=== PATIENT | female | born 1995 | race Caucasian/White ===

== ENCOUNTER 2022-10-15 11:36 | Emergency (ER) | payer OTHER ==
[2022-10-15 11:41] VITALS: BP 144/93; PULSE 92; RESP 18; TEMP 97; BMI 30.7
[2022-10-15 13:55] LABS: BASO % 0.4 % (0-2.0); EOS % 0.4 % (0-4.5); HEMATOCRIT 41.6 % (32.4-45.2); HEMOGLOBIN 14.2 GM/dL (10.7-15.3); LYMPH % 32.6 % (8-40); MCH 29.2 pg (25.7-33.7); MCHC 34.2 g/dl (32.0-36.0); MEAN CELL VOLUME 85.5 fl (80-96); MEAN PLT VOLUME 9.4 fl (7.5-11.1); MONO % 6.2 % (3.8-10.2); NEUT % 60.4 % (42.8-82.8); PLATELET COUNT 236 10^3/uL (134-434); RBC 4.87 M/mm3 (3.60-5.2); RDW 14.4 % (11.6-15.6); WHITE BLOOD COUNT 8.7 K/mm3 (4.0-10.0)
[2022-10-15 14:02] LABS: EPI CELLS 36 /uL (0-25.1); HYALINE CASTS 0 /uL (0-3.1); URINE APPEARANCE CLEAR; URINE BACTERIA 517 /uL (0-1359); URINE BILIRUBIN NEGATIVE (NEGATIVE); URINE COLOR YELLOW; URINE GLUCOSE (UA) NEGATIVE (NEGATIVE); URINE KETONE NEGATIVE (NEGATIVE); URINE LEUK ESTERASE NEGATIVE (NEGATIVE); URINE NITRITE NEGATIVE (NEGATIVE); URINE PROTEIN NEGATIVE (NEGATIVE); URINE RBC 50 /uL (0-23.9); URINE UROBILINOGEN 0.2 mg/dL (0.2-1.0); URINE WBC 37 /uL (0-25.8)
[2022-10-15 14:15] LABS: POTASSIUM 4.2 mmol/L (3.5-5.1)
[2022-10-15 14:17] LABS: BLOOD UREA NITROGEN 10.7 mg/dL (7-18); CALCIUM 10.1 mg/dL (8.5-10.1)
[2022-10-15 14:18] LABS: ALBUMIN 4.4 g/dl (3.4-5.0); MAGNESIUM 2.3 mg/dL (1.8-2.4)
[2022-10-15 14:21] LABS: CREATININE 0.7 mg/dL (0.55-1.3)
[2022-10-15 14:22] LABS: BILIRUBIN,TOTAL 0.4 mg/dL (0.2-1); TOT PROT 8.7 g/dl (6.4-8.2)
== END 2022-10-15 14:59 | disposition home or self-care (01) ==
LOC: JER 11:36
DX: R42 Dizziness and giddiness (principal); H53.8 Other visual disturbances; R07.9 Chest pain, unspecified; R00.2 Palpitations; R06.02 Shortness of breath; Z20.822 Contact with and (suspected) exposure to COVID-19
CPT/HCPCS: 0241U-QW; 36415; 80053; 81003; 82962; 83735; 84439; 84443; 85025; 87086; 87186; 93005; 93010; 99284-25

== ENCOUNTER 2023-02-04 13:06 | Emergency (ER) | payer OTHER ==
[2023-02-04 13:37] VITALS: BP 135/95; PULSE 88; RESP 16; TEMP 98.7; BMI 32.5
[2023-02-04] MEDS ORDERED: ACETAMINOPHEN 500 MG TABLET (FP) PO ONE (14:22)
[2023-02-04] MEDS ORDERED: BACITRACIN ZINC 15 GM TUBE TOPICAL OINTMENT TP ONE (14:22)
[2023-02-04] MEDS ORDERED: ACETAMINOPHEN 500 MG TABLET (FP) ONE (14:30)
== END 2023-02-04 15:09 | disposition home or self-care (01) ==
LOC: JERFT 13:06
DX: T22.132A Burn of first degree of left upper arm, initial encounter (principal); X10.2XXA Contact with fats and cooking oils, initial encounter
CPT/HCPCS: 99282-25

== ENCOUNTER 2023-06-16 13:16 | Emergency (ER) | payer OTHER ==
[2023-06-16 14:02] VITALS: BP 140/86; PULSE 101; RESP 17; TEMP 97.8; BMI 31.5
[2023-06-16] MEDS ORDERED: BACITRACIN ZINC 15 GM TUBE TOPICAL OINTMENT TP ONE (14:42)
[2023-06-16] MEDS ORDERED: DIPHTH,PERTUSS(ACELL),TET 0.5 ML DISP.SYRIN IM ONE ×3 (14:42→14:51)
[2023-06-16] MEDS ORDERED: BACITRACIN ZINC 15 GM TUBE TOPICAL OINTMENT ONE (14:50)
== END 2023-06-16 15:28 | disposition home or self-care (01) ==
LOC: JERFT 13:16 → JER 13:16 → JERFT 15:28
PROC: 3E0234Z Introduction of Serum, Toxoid and Vaccine into Muscle, Percutaneous Approach (ICD-10-PCS; principal; 2023-06-16)
DX: S61.213A Laceration without foreign body of left middle finger without damage to nail, initial encounter (principal); W26.0XXA Contact with knife, initial encounter
CPT/HCPCS: 90715; 99283-25

== ENCOUNTER 2023-08-18 17:11 | Emergency (ER) | payer OTHER ==
[2023-08-18 17:17] VITALS: RESP 18; TEMP 98; BMI 31.3
[2023-08-18] MEDS ORDERED: ACETAMINOPHEN 325 MG TABLET (FP) ONE (18:52)
[2023-08-18] MEDS ORDERED: LIDOCAINE 4% PATCH TP ONE (18:53)
[2023-08-18 18:58] LABS: BASO % 0.6 % (0-2.0); EOS % 0.8 % (0-4.5); HEMATOCRIT 40.2 % (32.4-45.2); HEMOGLOBIN 13.3 GM/dL (10.7-15.3); LYMPH % 30.3 % (8-40); MCH 28.9 pg (25.7-33.7); MEAN CELL VOLUME 87.5 fl (80-96); MEAN PLT VOLUME 8.9 fl (7.5-11.1); MONO % 6.3 % (3.8-10.2); PLATELET COUNT 247 10^3/uL (134-434); RBC 4.59 M/mm3 (3.60-5.2); RDW 13.1 % (11.6-15.6)
[2023-08-18] MEDS: SODIUM CHLORIDE 1,000 ML IV ONE (18:58)
[2023-08-18] MEDS: ACETAMINOPHEN 500 MG TABLET (FP) PO ONE (19:00)
[2023-08-18] MEDS: LIDOCAINE 5% TOPICAL PATCH TP ONE (19:00)
[2023-08-18] MEDS: LIDOCAINE 4% PATCH TP ONE (19:00)
[2023-08-18 19:19] LABS: POTASSIUM 4.2 mmol/L (3.5-5.1)
[2023-08-18 19:22] LABS: BLOOD UREA NITROGEN 11.1 mg/dL (7-18)
[2023-08-18 19:25] LABS: CREATININE 0.6 mg/dL (0.55-1.3)
[2023-08-18] MEDS ORDERED: KETOROLAC TROMETHAMINE 15 MG/ML VIAL ONE (19:25)
[2023-08-18 19:26] LABS: BILIRUBIN,TOTAL 0.2 mg/dL (0.2-1)
[2023-08-18] MEDS: KETOROLAC TROMETHAMINE 15 MG/ML VIAL IVPUSH ONE (19:32)
[2023-08-18 20:58] VITALS: BP 129/88; PULSE 78
[2023-08-18] MEDS ORDERED: LIDOCAINE PATCH REMOVAL MC SCH ×2 (22:00)
== END 2023-08-18 20:58 | disposition home or self-care (01) ==
LOC: JER 17:11
PROC: 3E0333Z Introduction of Anti-inflammatory into Peripheral Vein, Percutaneous Approach (ICD-10-PCS; principal; 2023-08-18)
PROC: 3E0337Z Introduction of Electrolytic and Water Balance Substance into Peripheral Vein, Percutaneous Approach (ICD-10-PCS; 2023-08-18)
DX: M54.6 Pain in thoracic spine (principal); M25.511 Pain in right shoulder; M25.512 Pain in left shoulder; M54.2 Cervicalgia
CPT/HCPCS: 36415; 80053; 84703; 85025; 99284-25

== ENCOUNTER 2023-10-09 13:54 | Emergency (ER) | payer OTHER ==
[2023-10-09 14:04] VITALS: RESP 18; BMI 31.5
[2023-10-09] MEDS ORDERED: ACETAMINOPHEN 325 MG TABLET (FP) ONE (15:13)
[2023-10-09] MEDS: ACETAMINOPHEN 500 MG TABLET (FP) PO ONE (15:19)
[2023-10-09] MEDS ORDERED: METOCLOPRAMIDE HCL INJECTION 10 MG/2 ML VIAL ONE (17:40)
[2023-10-09] MEDS: SODIUM CHLORIDE 0.9% 500 ML INFUS.BAG IV ONE (17:51)
[2023-10-09] MEDS: METOCLOPRAMIDE HCL INJECTION 10 MG/2 ML VIAL IVPB ONE (17:51)
[2023-10-09 17:52] LABS: BASO % 0.4 % (0-2.0); EOS % 0.5 % (0-4.5); HEMATOCRIT 38.1 % (32.4-45.2); HEMOGLOBIN 12.6 GM/dL (10.7-15.3); LYMPH % 34.6 % (8-40); MCH 29.2 pg (25.7-33.7); MCHC 33.1 g/dl (32.0-36.0); MEAN CELL VOLUME 88.1 fl (80-96); MEAN PLT VOLUME 8.2 fl (7.5-11.1); MONO % 5.3 % (3.8-10.2); NEUT % 59.2 % (42.8-82.8); PLATELET COUNT 221 10^3/uL (134-434); RBC 4.33 M/mm3 (3.60-5.2); RDW 13.6 % (11.6-15.6); WHITE BLOOD COUNT 10.4 K/mm3 (4.0-10.0)
[2023-10-09 18:15] LABS: POTASSIUM 3.8 mmol/L (3.5-5.1)
[2023-10-09 18:19] LABS: ALBUMIN 3.9 g/dl (3.4-5.0); BLOOD UREA NITROGEN 8.8 mg/dL (7-18); MAGNESIUM 1.9 mg/dL (1.8-2.4)
[2023-10-09 18:20] LABS: CALCIUM 9.9 mg/dL (8.5-10.1)
[2023-10-09 18:22] LABS: CREATININE 0.6 mg/dL (0.55-1.3)
[2023-10-09 18:23] LABS: TOT PROT 7.4 g/dl (6.4-8.2)
[2023-10-09 18:24] LABS: BILIRUBIN,TOTAL 0.2 mg/dL (0.2-1)
[2023-10-09 18:38] VITALS: BP 102/66; PULSE 92; TEMP 97.6
== END 2023-10-09 18:41 | disposition home or self-care (01) ==
LOC: JER 13:54
PROC: 3E033GC Introduction of Other Therapeutic Substance into Peripheral Vein, Percutaneous Approach (ICD-10-PCS; principal; 2023-10-09)
PROC: 3E033GC Introduction of Other Therapeutic Substance into Peripheral Vein, Percutaneous Approach (ICD-10-PCS; 2023-10-09)
DX: R20.2 Paresthesia of skin (principal); M25.511 Pain in right shoulder; M25.512 Pain in left shoulder
CPT/HCPCS: 36415; 80053; 83735; 84703; 85025; 99284-25